=== PATIENT | male | born 1945 | race Caucasian/White ===

== ENCOUNTER 2019-11-28 08:51 | Emergency (ER) | payer MEDICARE, SELFPAY ==
--- NOTE | ~2019-11-28 | XR_ITS ---
XR chest 2V DATE: 11/28/2019 09:40 INDICATION: Visual disturbance. Balance disturbance. Recent fall. TECHNIQUE: PA and lateral chest COMPARISON: None FINDINGS: There is prominent left basilar atelectasis and/or infiltrate and mild left pleural effusio n. There is mild atelectasis at the right lung base. Heart size appears within normal range. No pulmonary vascular congestion or pneumothorax is detected. No hilar or mediastinal enlargement is noted. The left hilum however is partially obscured by the in filtrate, atelectasis and/or effusion. There are multiple recent displaced left rib fractures, including seventh, eighth, ninth and 10th rib fractures. IMPRESSION: Multiple left recent displaced rib fractures with left lower lung atelectasis, infiltrate , left pleural effusion No pneumothorax. Reviewed, dictated and finalized at location [facility]. IMPRESSION: Multiple left recent displaced rib fractures with left lower lung a telectasis, infiltrate, left pleural effusion No pneumothorax.
--- NOTE | ~2019-11-28 | CT_ITS ---
EXAMINATION: CT brain wo con DATE: 11/28/2019 09:44 INDICATION: Increased falls. Ataxia. Balance and vision disturbance. TECHNIQUE: Computed tomography (CT) of the head was performed without intravenous contrast. The mA wa s adjusted according to patient size. Iterative reconstruction technique was employed. Exam dose: 60 5.33 mGy-cm total exam DLP. COMPARISON: None FINDINGS: Status post right posterior fossa craniectomy with underlying right cerebellar hemispheric hypoattenuation suggesting prior infarct or sequela of prior hematoma or neoplasm possibly; correlati on with prior surgical history is recommended. There is hyperattenuation in the region of the right etta and suggestion of midbrain mass. MRI brain/ brainstem is recommended for further evaluation. Right parietal bone flap is noted in place. No midline shift or mass effect is evident. No subdural or dural hematoma is detected. Cerebral atherosclerosis. There is nonspecific diminished attenuation of the cerebral white matter, likely due to chronic small vessel ischemic changes. There is cerebellar and moderate cerebral atrophy. Old nasal fracture deformities. Right parietal bone flap. No skull fracture or bone destruction. The mastoid air cells are normally developed and aerated. The included paranasal sinuses are normally developed and aerated. 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 Further evaluation with MRI b rain/brainstem is recommended Status post right posterior fossa and right parietal craniectomies Dr Jimenez telephoned the report to ER physician Dr. Bhardwaj on 11/28/2019 at approximately 1000 hours Reviewed, dictated and finalized at [facility]. Reviewed, dictated and finalized at location B. 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 Further evaluation with MRI brain/brainstem is recommended Status post right posterior fossa and right parietal craniectomies Dr Jimenez telephoned the report to ER physician Dr. Bhardwaj on 11/28/2019 at appro ximately 1000 hours
[2019-11-28 09:07] VITALS: BP 101/65; PULSE 108; RESP 18; TEMP 35.9; O2SAT 97
--- NOTE | 2019-11-28 09:17 | ED.GENADULT ---
HPI - General Adult General Chief complaint: Weakness Stated complaint: I have a lot of things wrong with me Time Seen by Provider: 11/28/19 08:58 Source: patient and family Mode of arrival: wheelchair Limitations: no limitations History of Present Illness HPI narrative: Patient is a 74-year-old with a multiple CVAs, left-sided deficit, history of brain tumor in 1984, who presents for evaluation of frequent falls, did multi with walking. Patient currently denying any pain. He states that he is not sure if he tripped over something, but states his gait has been off for the past few days. He did fall and land on his left side two days ago. Patient is originally from [place], flew here over a week ago visiting family. Has denied any fever, cough, shortness of breath or chest pain. Patient states he otherwise feels at baseline aside from the difficulty with walking. At times he feels like his vision is worse than normal as well. He denies eye pain, headache. Patient is not on any anticoagulation. Related Data Home Medications Medication Instructions Recorded Confirmed multivitamin,[id number] 1 tablet PO DAILY 11/28/19 11/28/19 [Complete Multivitamin] pravastatin 40 mg PO DAILY 11/28/19 11/28/19 Allergies Allergy/AdvReac Type Severity Reaction Status Date / Time No Known Allergies Allergy Verified 11/28/19 09:13 Review of Systems Review of Systems: Narrative: CONSTITUTIONAL: Denies fever, chills, or sweats. EYES: Occasional blurry vision ENT: Denies rhinorrhea, congestion, sore throat, or otalgia. CARDIOVASCULAR: Denies chest pain, palpitations, or edema. RESPIRATORY: Denies cough or dyspnea. Reports muscle spasm which causes him to have difficulty with breathing at times. GASTROINTESTINAL: Denies abdominal pain, nausea, vomiting, or diarrhea. GENITOURINARY: Denies dysuria or hematuria. SKIN: Denies rash or itching. MUSCULOSKELETAL: Denies back pain, joint pain, or myalgia. NEUROLOGIC: Denies headache, denies new numbness PMFSH Past Medical History Medical History (Updated 11/28/19 @ 12:58 by Joyce Bhardwaj MD) Brain tumor CVA (cerebral vascular accident) Surgical History Surgical History (Updated 11/28/19 @ 11:25 by Joyce Bhardwaj MD) Status post craniectomy Social History Social History (Updated 11/28/19 @ 11:25 by Joyce Bhardwaj MD) Smoking status: Never smoker Alcohol intake: never Substance use: never Living arrangements: with family Gender identity (if verbalized by the patient): Male Exam Narrative: Exam Narrative: GENERAL: Awake, alert, conversant HEAD: Normocephalic, atraumatic. EYES: PERRLA and EOMI. ENT: Nares clear, no rhinorrhea or epistaxis. Mucous membranes moist. NECK: Supple. CHEST: No respiratory distress, breathing even and non labored HEART: Regular rate, sinus rhythm ABDOMEN:Non distended, non tender EXTREMITIES: Normal range of motion. No edema. SKIN: Warm, dry, no rash. NEURO: Alert and oriented x3. Finger to nose intact bilaterally mild dysmetria bilaterally. EOMs intact without nystagmus. Left-sided facial droop, patient states this is chronic, his grimace is asymmetric.. Intact sensation in face. Hearing intact bilaterally. Shoulder shrug intact. Strength 5/5 bilateral upper extremities. Strength 5/5 bilateral lower extremities. Reflexes 2+ patellar. Heel to meraz intact bilaterally, slowed but patient able to complete this. Ambulatory exam deferred. Course Vital Signs Vital signs: Vital Signs Temperature 35.9 C L 11/28/19 09:07 Pulse Rate 108 H 11/28/19 09:07 Respiratory Rate 18 11/28/19 09:07 Blood Pressure 101/65 11/28/19 09:07 Pulse Oximetry 97 11/28/19 09:07 Temperature 35.9 C L 11/28/19 09:07 Pulse Rate 96 11/28/19 13:51 Respiratory Rate 20 11/28/19 13:51 Blood Pressure 133/81 11/28/19 13:51 Pulse Oximetry 91 11/28/19 13:51 Transfer Transfered to: [facility] Accepting physician: Yareli
--- NOTE | 2019-11-28 09:27 | ECG_ITS ---
Measurements Intervals [place] Rate: 93 P: 13 OH: 184 QRS: 23 QRSD: 88 T: 11 QT: 363 QTc: 453 Interpretive Statements SINUS RHYTHM BORDERLINE ST ABNORMALITY- ANT/INF LEADS BASELINE ARTIFACT- I, II, III, AVR, AVF BORDERLINE ECG Electronically Signed On 11-28-2019 11:22:21 CDT by Gabriel Bailey D.O.
--- NOTE | 2019-11-28 09:35 | PC.NURSE ---
could not draw blood at this time, pt is in xray.
[2019-11-28 10:01] LABS: Basophils Percent Auto 0.2 % (0.2-1.2); Hematocrit 33.4 % (42.0-52.0); Hemoglobin 11.4 g/dL (14.0-18.0); Immature Granulocyte Absolute 0.07 K/mm3 (0.00-0.031); Immature Granulocyte Percent A 0.6 % (0-0.5); Lymphocytes Absolute Auto 0.69 K/mm3 (0.9-3.2); Lymphocytes Percent Auto 5.9 % (18.3-44.2); Mean Corpuscular HGB Conc 34.1 g/dl (32-36); Mean Corpuscular Hemoglobin 33.1 pg (26-34); Mean Corpuscular Volume 97.1 fl (80-100); Mean Platelet Volume 10.6 fl (7.4-10.4); Monocytes Absolute Auto 1.1 K/mm3 (0.1-0.6); Neutrophils Absolute Auto 9.9 K/mm3 (1.3-6.7); Neutrophils Percent Auto 84.3 % (45.5-73.1); Platelet Count Result 213 k/mm3 (150-375); Red Blood Count 3.44 M/mm3 (4.6-6.20); Red Cell Distribution Width 13.6 % (11.5-14.5); White Blood Count 11.7 K/mm3 (4.5-10.0)
[2019-11-28 10:10] LABS: INR 1.1; Prothrombin Time 13.9 Seconds (11.1-14.7)
[2019-11-28 10:11] LABS: Partial Thromboplastin Time 25.8 SECONDS (22.3-36.8)
[2019-11-28] MEDS: ONDANSETRON INJ 4 MG/2 ML VIAL IV PUSH (10:11)
[2019-11-28] MEDS: SODIUM CHLORIDE 0.9% IV 1,000 ML 999 ML IV CONT ×3 (10:12→10:45)
[2019-11-28 10:13] VITALS: BP 106/71; PULSE 91; RESP 16; O2SAT 96
[2019-11-28 10:29] LABS: Alanine Aminotransferase 25 U/L (4-50); Albumin Level 3.5 g/dL (3.5-5.1); Alkaline Phosphatase 37 U/L (38-126); Aspartate Amino Transferase 21 U/L (17-59); Bilirubin,Total 0.4 mg/dL (0.2-1.3); Blood Urea Nitrogen 21 mg/dL (9-20); Calcium 8.4 mg/dL (8.4-10.2); Carbon Dioxide 25 mmol/L (22-30); Chloride 105 mmol/L (98-107); Estimated CRCL calculation 54 ml/min; Estimated Glomerular Filt Rate > 60; Glucose 140 mg/dL (75-110); Lipase 40 U/L (23-300); Sodium 138 mmol/L (137-145)
[2019-11-28 10:46] VITALS: BP 129/72; PULSE 92
[2019-11-28 12:07] LABS: Troponin I 0.056 ng/mL (0.000-0.034)
[2019-11-28 12:17] VITALS: BP 130/77; PULSE 93; RESP 24; O2SAT 92
[2019-11-28 12:30] LABS: Add Urine Microscopic? NO; Appearance Urine Clear (Clear); Bilirubin Urine Negative (Negative); Blood Urine Negative (Negative); Color Urine Yellow (Yellow); Glucose Urine UA Negative (Negative); Ketones Urine Negative (Negative); Leukocyte Esterase Ur Negative LEU/UL (Negative); Nitrate Urine Negative (Negative); Protein Urine Negative (Negative); Urobilinogen Urine Negative mg/dL (<2.0)
[2019-11-28 12:59] LABS: Reflex Lactic Acid Yes or No Add Lactic
[2019-11-28 13:25] LABS: Lactic Acid 1.7 mmol/L (0.7-2.1)
[2019-11-28 13:28] VITALS: BP 133/81; PULSE 94; RESP 22; O2SAT 91
[2019-11-28 13:51] VITALS: BP 133/81; PULSE 96; RESP 20; O2SAT 91
--- NOTE | 2019-11-28 15:09 | PC.NURSE ---
[facility] has Vancomycin on plum pump running for transfer via ambulance
== END 2019-11-28 13:54 | disposition short-term general hospital (02) ==
PROVIDERS: Emergency Provider Emergency Medicine
DX: S22.42XA Multiple fractures of ribs, left side, initial encounter for closed fracture (principal); R93.89 Abnormal findings on diagnostic imaging of other specified body structures; W19.XXXA Unspecified fall, initial encounter
CPT/HCPCS: 36415; 70450; 71046; 80053; 81003; 83605; 83690; 84484; 85025; 85610; 85730; 87040; 93005; 96365; 96367; 96375; 99291; J2405; J2543; J3370; J7030